=== PATIENT | male | born 1975 | race Caucasian/White ===

== ENCOUNTER 2017-01-02 16:56 | Emergency (ER) | payer SELFPAY ==
[~2017-01-02] VITALS: Ht 167.6 cm; Wt 81.6 kg
--- NOTE | ~2017-01-02 | CR63 ---
[facility] A Service of [facility] & [facility] RADIOLOGY TEXT RESULTS PATIENT: MIKE MOREL LOCATION: [facility]FT[facility] : 73 UNIT #: [id number] AGE: [address]: Natty Panda APRN SEX: M ORDER DR: [id number] [facility] [address] [place], [place] [address] [id number] E MR#: [id number] Acc #: [id number] NAME: MIKE MOREL : 1975 SEX: M STUDY DATE/TIME: 01/02/2017 17:27 UNIT: [facility] ROOM: STUDY DESCRIPTION: CR Chest 2 View Attending Physician: Natty Panda A.P.R.N. Ordering Physician: Ed Robson Melvin M.D. Primary Care Physician: No Primary Care Physician MEDICAL IMAGING REPORT This report is preliminary unless electronic signature is present EXAM Chest PA and lateral, 01/02/2017. HISTORY Cough and chest congestion for 2 weeks. FINDINGS PA and lateral examination of the chest upright shows a good expansion of the parenchyma with a normal distribution of the pulmonary vascularity. There is no indication of congestion, effusion, infiltrate, tumor, or nodular density. The pleural reflections and diaphragmatic contours are normal. The cardiac silhouette and mediastinal anatomy is within normal limits. IMPRESSION Normal chest. Dictated by... Edy Vallejo M.D. THIS IS AN ELECTRONICALLY VERIFIED REPORT Edy Vallejo M.D. at 01/03/2017 2:22 PM KRT/evaristo TD: 01/03/2017 07:43 JOB #: [id number] MEDICAL IMAGING REPORT Page 1 of 1 COPY
[~2017-01-02 16:56] MED LIST: AMOXICILLIN500 M1 PO; MOTRIN600 M1 PO; NO MEDICATIONS; PEN-VEE K PO; TYLENOL #3 PO; VICODIN 5/1 TAB 5/50 PO; VOLTAREN75 MG PO
== END 2017-01-02 18:56 | disposition home or self-care (01) ==
LOC: CFTX 16:56 → CED 16:56 → CFTX 18:22
DX: J20.9 Acute bronchitis, unspecified (principal); J02.9 Acute pharyngitis, unspecified; J45.909 Unspecified asthma, uncomplicated; F17.210 Nicotine dependence, cigarettes, uncomplicated
CPT/HCPCS: 71020; 87651; 94640; 99283; J1100